=== PATIENT | male | born 1980 | race Caucasian/White ===

== ENCOUNTER → 2016-10-20 | Day surgery (SDC) | payer OTHER ==
[2016-10-20 12:08] VITALS: TEMP 96.7; O2SAT 99
[2016-10-20 12:25] VITALS: BP 120/65; PULSE 77; RESP 17
== END | disposition home or self-care (01) | DRG 392 ==
LOC: SURG 10:25
PROVIDERS: ATTEND Surgery
DX: R93.3 Abnormal findings on diagnostic imaging of other parts of digestive tract (principal)